=== PATIENT | male | born 1960 | race Caucasian/White ===

== ENCOUNTER 2017-02-16 08:07 | Inpatient (IN) | payer OTHER ==
[~2017-02-16] VITALS: Ht 172.7 cm; Wt 80.1 kg
--- NOTE | ~2017-02-16 | PR ---
[place], [place] PROGRESS NOTE NAME: TIMOTHY WHITLEY UNIT #: [id number] ROOM: 311 DOCTOR: ANDREZ VILLASENOR MD BIRTHDATE: [birth year] DOS: 02/21/2017 CHIEF COMPLAINT: "I slept a little better and I don't feel as hung over this morning." SUMMARY OF THE VISIT: The patient was interviewed. This time, he was already sitting eating breakfast. He stopped and engaged readily in conversation after shaking my hand. He reports that he slept at least another solid hour or two without interruption and was very happy about this and stated that when he woke up this morning, he did not feel that hang over effect that he felt yesterday. He denies any other side effects from the medications at this point in time and is willing to allow me to adjust further. His mood is trending towards euthymia. MENTAL STATUS: He is alert and oriented to person, place, and time. Mood does seem to be strongly trending towards euthymia and affect is much more appropriate. There are no symptoms of diana or hypomania. There are no overt auditory or visual hallucinations and memory is intact. PLAN: I will maximize out the dose of the Vraylar from 4.5 mg at bedtime to 6 mg at bedtime. Monitor and support, engage in individual and stern milieu activity with the plan to return home when psychiatrically stable. ANDREZ VILLASENOR MD CM:PNTRANS [id number] ANDREZ VILLASENOR MD 02/21/17 1421 interface
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
--- NOTE | ~2017-02-16 | PR ---
[place], [place] PROGRESS NOTE NAME: TIMOTHY WHITLEY UNIT #: [id number] ROOM: 311 DOCTOR: HELDER YEE BLANE BIRTHDATE: [birth year] DOS: 02/18/2017 CHIEF COMPLAINT: "Good morning." SUMMARY OF VISIT: The patient was interviewed in his room where he was reclining in bed after breakfast. He sat up and engaged readily in conversation. Nurses note that he did complain last night that there are fumes back in his apartment. I do see that he had mentioned this to Dr. Hoover. Unsure if this is a delusion or if there really may be some type of fumes, whether gas or maintenance type things going on that causes odor. Nursing notes that he tends to isolate, stay in his room, will come out for meals and occasionally for some of the group activities. I talked to him about this. He does state that he is kind of a person that stays to himself that this is his norm, it is not about that he is being lonely or isolating, he just feels better on his own. He did state that he does walk the halls and that he will try to do some of the group things he goes, but after a while, he gets a little overwhelming and he just goes back to his room. No behaviors or complaints per nursing. MENTAL STATUS: He is alert and oriented to person and place, approximate to time. There are some short-term memory gaps. Mood is euthymic, pleasant, I was able to get him to laugh. I did not get any obvious paranoia or delusions from him, but within the last 24 hours, he still does talk about the fumes in his apartment, so this is a possible delusion. May be we can reach out to the apartment he lives and find out if there is any kind of maintenance or something going on there that would cause the fumes. PLAN: Dr. Hoover increased his Vraylar last night, he seems to tolerate it well. He said his sleep was a little bit better last night and that is his main complaint. We also started him on Remeron and he is tolerating this. I will see how he does over the next 24 hours, I can always bump up the Vraylar. The target of the Vraylar is 6 mg, currently on 3 mg. Let me see how he does over the next 24 hours, most likely we will bump that up to 4.5 mg tomorrow if some of his delusions are not broken. We will go from there and plan to discharge when stable. [place], [place] PROGRESS NOTE NAME: TIMOTHY WHITLEY UNIT #: [id number] ROOM: [facility] DOCTOR: HELDER YEE BIRTHDATE: [birth year] BLANE YEE CNP CM:PNTRANS 29 HELDER YEE 02/18/17 1530 interface
--- NOTE | ~2017-02-16 | PR ---
[place], [place] PROGRESS NOTE NAME: TIMOTHY WHITLEY UNIT #: [id number] ROOM: 311 DOCTOR: ANDREZ VILLASENOR MD BIRTHDATE: [birth year] DOS: 02/20/2017 CHIEF COMPLAINT: "I had still not sleeping well, I was up at 11:30 and I was up again at 2:00." SUMMARY OF THE VISIT: The patient was in his room resting, but awoke easily and engaged readily in conversation. He reports that in some ways, he is feeling slightly better with the medicine, but still has a significant sleep problem. He has both difficulty falling asleep and maintaining sleep and tossed and turned throughout the evening and woke up now this morning feeling somewhat tired. He is unclear whether this tired totally because of lack of sleep or the medicines themselves, but is willing to allow me to adjust the medicines accordingly. He denies any other significant side effects. MENTAL STATUS: He is alert and oriented. Mood does still seem to be depressed with anxious overtones. There is still some mood lability noted, but there are no overt auditory or visual hallucinations. No delusions, no paranoia. Memory is intact. PLAN: I will go ahead and increase the Remeron from 15-22.5 mg at bedtime while simultaneously increasing the Vraylar from 3 mg at bedtime to 4.5 mg at bedtime. Routine screening examinations revealed him to have a low normal vitamin B12 level of 299. I will go ahead and give him a B12 injection of 1000 mcg IM today and then have him follow up with his primary care physician post-discharge. ANDREZ VILLASENOR MD CM:PNTRANS [id number] ANDREZ VILLASENOR MD 02/21/17 0013 interface
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
--- NOTE | ~2017-02-16 | PR ---
[place], [place] PROGRESS NOTE NAME: TIMOTHY WHITLEY UNIT #: [id number] ROOM: 311 DOCTOR: HELDER YEE BIRTHDATE: [birth year] DOS: 02/19/2017 CHIEF COMPLAINT: "Good morning." SUMMARY OF VISIT: The patient was interviewed in his room where he sat up and engaged in conversation with me. He states that overall his mood is fine is just that he is not sleeping, in particular he is struggling to go to sleep. He feels like he is fighting it and it is driving him crazy and the more he thinks about it the less sleep he gets. MENTAL STATUS: He is alert and oriented to person, place, approximate time. Mood trending towards euthymic other than the agitation about not sleeping. No overt signs of auditory or visual hallucinations. No discussion of these delusions about fumes. PLAN: Mood fletcher and delusions and paranoia fletcher, he seems fairly stable, I believe the Remeron is actually helping him , but just not get to sleep, so I am going to add some Vistaril 50 mg at bedtime to be given to him at the same time to see if this will help get him to sleep. This seems to be his main focus and where he feels that if he could just get a good night sleep. He would feel overall much better, but he was pleasant, engaging in conversation again and I was going to have the Vistaril to see how he does tonight and we can go from there. BLANE YEE CNP CM:PNTRANS [id number] HELDER YEE 02/19/17 1604 interface
[~2017-02-16 08:07] MED LIST: AMBIEN10 MG PO; EFFEXOR75 MG PO; FLOMAX0.4 MG PO; K-DUR20 MEQ PO; MIRALAX POWDER17 G1 PO; PRILOSEC20 MG PO; ZYPREXA ZYDIS20 MG PO; ZYPREXA20 MG PO
[2017-02-16 09:41] VITALS: BP 118/69
[2017-02-16] MEDS ORDERED: TRAZODONE150 MG PO (10:50)
[2017-02-16] MEDS ORDERED: OLANZAPINE20 M2 PO (10:51)
[2017-02-16] MEDS ORDERED: EFFEXOR-XR150 MG PO (10:51)
[2017-02-16 12:00] VITALS: BP 118/69
[2017-02-16 17:49] LABS: BILIRUBIN NEGATIVE (NEGATIVE); BLOOD NEGATIVE (NEGATIVE); CLARITY SL CLOUDY (CLEAR); COLOR YELLOW (YELLOW); GLUCOSE NEGATIVE (NEGATIVE); KETONE NEGATIVE (NEGATIVE); LEUKO ESTERASE NEGATIVE (NEGATIVE); NITRITE NEGATIVE (NEGATIVE); PH 6.5 (5.0-9.0); PROTEIN NEGATIVE (NEGATIVE)
[2017-02-16 17:56] LABS: BACTERIA 1+; EPITHELIAL CELLS 0-2; RBC 0-2 rbc/hpf (0-2); URINE REFLEX COMMENT NO (NO); WBC 0-2 wbc/hpf (0-5)
[2017-02-16 20:06] VITALS: BP 106/62
[2017-02-17 06:30] LABS: BASO # 0.1 10*3/uL (0.0-0.1); BASO % 0.5 % (0.0-1.0); EOS # 0.2 10*3/uL (0.0-0.4); EOS % 1.6 % (1.0-4.0); HEMATOCRIT 43.5 % (42.0-52.0); HEMOGLOBIN 15.3 g/dl (14.0-18.0); IG # 0.1 10*3/uL (0.0-0.1); LYMPH # 3.5 10*3/uL (1.3-4.4); LYMPH % 32.3 % (27.0-41.0); MEAN CELL VOLUME 91.2 fl (80.0-94.0); MEAN CORPUSCULAR HGB 32.1 pg (27.0-31.0); MEAN CORPUSCULAR HGB CONC 35.2 g/dl (33.0-37.0); MEAN PLATELET VOLUME 10.1 fl (9.6-12.3); MONO # 1.2 10*3/uL (0.1-1.0); MONO % 10.7 % (3.0-9.0); NEUT # 5.9 10*3/uL (2.3-7.9); NEUT % 54.2 % (47.0-73.0); PLATELET COUNT AUTOMATED 216 10*3/uL (130-400); RED BLOOD COUNT 4.77 10*6/uL (4.50-5.90); RED CELL DISTRI WIDTH 12.7 % (0-14.5)
[2017-02-17 07:04] LABS: ALBUMIN 3.4 gm/dl (3.1-4.5); ALKALINE PHOSPHATASE 82 U/L (45-117); BILIRUBIN, TOTAL 0.5 mg/dl (0.2-1.0); BUN 12 mg/dl (7-24); CARBON DIOXIDE 25 mmol/L (21-32); CHLORIDE 99 mmol/L (98-107); EST GLOM FILT AFRICAN AMERICAN > 60 ml/min; GLUCOSE 88 mg/dL (65-99); POTASSIUM 3.5 mmol/L (3.5-5.1); SGOT/AST 27 IU/L (3-35); SGPT/ALT 41 U/L (12-78); SODIUM 132 mmol/L (136-145); TOTAL PROTEIN 6.8 gm/dL (6.4-8.2)
[2017-02-17 07:10] LABS: HEMOGLOBIN A1c 6.1 % (4.8-5.6); THYROID STIM HORMONE (HS) 0.895 uIU/ml (0.358-4.75)
[2017-02-17 08:00] VITALS: BP 110/58
[2017-02-17 09:28] LABS: VITAMIN D, 25-HYDROXY 34.3 ng/mL (30-100)
[2017-02-17] MEDS ORDERED: LATANOPROST2.5 ML OU (13:21)
[2017-02-17] MEDS ORDERED: LUBRICANT EYE D15 ML OU (13:22)
[2017-02-17] MEDS ORDERED: VITAMIN D-32000 UNIT PO (13:30)
[2017-02-17] MEDS ORDERED: PRESERVISION A1 EAC1 PO (13:38)
[2017-02-17 19:49] VITALS: BP 97/43
[2017-02-18 07:57] VITALS: BP 129/78
[2017-02-18 19:44] VITALS: BP 131/70
[2017-02-19 07:43] VITALS: BP 118/66
[2017-02-19 19:49] VITALS: BP 122/54
[2017-02-20 07:16] VITALS: BP 119/65
[2017-02-20 19:44] VITALS: BP 126/67
[2017-02-21 07:01] VITALS: BP 121/56
[2017-02-21 20:00] VITALS: BP 117/60
[2017-02-22 07:46] VITALS: BP 106/62
[2017-02-22] MEDS ORDERED: HYDROXYZINE PAM25 M1 PO (08:08)
[2017-02-22] MEDS ORDERED: MIRTAZAPINE45 MG PO (08:08)
[2017-02-22] MEDS ORDERED: VRAYLAR3 MG PO (08:08)
[2017-02-22] MEDS ORDERED: KROGER NIC21 MG/24 H T (09:55)
== END 2017-02-22 11:50 | disposition home or self-care (01) | DRG 885 ==
LOC: 3N 08:07
PROVIDERS: Psychiatry & Neurology Psychiatry
DX: F25.9 Schizoaffective disorder, unspecified (principal); F33.3 Major depressive disorder, recurrent, severe with psychotic symptoms; E87.1 Hypo-osmolality and hyponatremia; F41.9 Anxiety disorder, unspecified; Z72.0 Tobacco use; Z84.89 Family history of other specified conditions; Z82.49 Family history of ischemic heart disease and other diseases of the circulatory system; Z79.899 Other long term (current) drug therapy; Z88.8 Allergy status to other drugs, medicaments and biological substances

== ENCOUNTER 2017-06-19 15:24 | Inpatient (IN) | payer OTHER ==
[~2017-06-19] VITALS: Ht 175.2 cm; Wt 77.6 kg
--- NOTE | ~2017-06-19 | PR ---
[place], [place] PROGRESS NOTE [id number] UN[facility] #: [id number] ROOM: 315 DOCTOR: Madhu BRIZUELA,ROSEANNA BIRTHDATE: [birth year] DOS: 06/28/2017 PSYCHIATRIC PROGRESS NOTE SUBJECTIVE: The patient seen and spoke with the staff. Per staff, the patient is still isolated, taking his medication, doing better than before, but yesterday he started talking about fleeting suicidal ideation and paranoia. The patient was pleasant, cooperative. He said that he is feeling "better today." I talked about his fleeting suicidal thought, he said that still it is there, but not as strong. He said that he do not want to act on it. He feels that the medication is helping him. He reports good sleep and appetite. MENTAL STATUS EXAMINATION: The patient was pleasant, cooperative, described his mood as "okay." Affect was flat. Thought process goal directed. No flight of ideas, loosening of association. He denied auditory or visual hallucination. No delusion or paranoia noted. He had fleeting suicidal ideation, but no intent or plan. Denied homicidal ideation, intent or plan. ASSESSMENT: Schizoaffective disorder. PLAN: 1. Continue current medication and care. 2. Continue redirection. 3. Supportive care. ROSEANNA BRIZUELA MD CM:KATLYN 01 02 Madhu BRIZUELA 06/29/171902 interface
--- NOTE | ~2017-06-19 | PR ---
[place], [place] PROGRESS NOTE [id number] UN[facility] #: [id number] ROOM: 315 DOCTOR: Madhu BRIZUELA,ROSEANNA BIRTHDATE: [birth year] DOS: 06/29/2017 PSYCHIATRIC PROGRESS NOTE SUBJECTIVE: The patient seen and spoke with the staff. Per staff, the patient slept all night. Took his medication. No behavioral problems or issues, but still reported fleeting suicidal ideation, but no intent or plan. The patient was pleasant and cooperative. He was in his bed. He said that he will get up today and go for breakfast. He reports being "fatigued," but did not say why he is feeling like that. He said that he still had fleeting suicidal ideation, but he feels safe in the hospital and this ideation is not as strong as before. He feels the medication is helping him. He denied any side effect from the medication also. MENTAL STATUS EXAMINATION: The patient was pleasant, cooperative, described his mood as "okay." Affect was flat. Thought process goal directed. No flight of ideas or loosening of association. He denied auditory or visual hallucination. He was vague about his paranoia. He reports fleeting suicidal ideation. Denied homicidal ideation, intent or plan. Insight and judgment fair. ASSESSMENT: Schizoaffective disorder. PLAN: 1. Continue current medication and care. 2. Continue redirection. 3. Supportive care. ROSEANNA BRIZUELA MD CM:KALTYN [id number] Madhu BRIZUELA 06/29/17 2314 interface
--- NOTE | ~2017-06-19 | PR ---
[place], [place] PROGRESS NOTE NAME[id number] UN[facility] #: [id number] ROOM: 315 DOCTOR: Madhu BRIZUELA,ROSEANNA BIRTHDATE: [birth year] DOS: 07/02/2017 SUBJECTIVE: The patient seen and I spoke with the staff. Per staff, the patient is doing well. No behavioral problems or issues, coming out from her room regularly, and also attending groups. He looks brighter. The patient was pleasant, cooperative. He was in his room on his bed. He made good eye contact, looks brighter. He says that he is feeling better. Denied depressed mood or hopelessness. Denied any other neurologic signs or symptoms of depression. He denied any psychotic symptoms. Also, reports good sleep and appetite. MENTAL STATUS EXAMINATION: The patient was pleasant, cooperative, described his mood as "good." Affect, mood congruent. Thought process goal directed. No flight of ideas or loosening of association. He denied auditory or visual hallucination. No delusions or paranoia noted. He denied any suicidal ideation, intent or plan. He also denied any homicidal ideation, intent or plan. Insight and judgment fair. ASSESSMENT: Schizoaffective disorder. PLAN: 1. Continue current medication and care. 2. Encourage activities and groups. 3. Discharge planning. ROSEANNA BRIZUELA MD CM:PNTRANS [id number] Madhu BRIZUELA 07/02/17 1041 interface
--- NOTE | ~2017-06-19 | PR ---
[place], [place] PROGRESS NOTE [id number] UN[facility] #: [id number] ROOM: 315 DOCTOR: Madhu BRIZUELA,ROSEANNA BIRTHDATE: [birth year] DOS: 06/21/2017 The patient seen and spoke with the staff. Per staff, the patient is still very withdrawn, guarded, isolative, taking his medication, no behavioral problems or issues. The patient was pleasant, cooperative. He was in his room as mentioned by the nursing staff. He is isolated. He stays in his room, i.e., when I asked him that if there are any problems or issues, he said "no." He said that he is taking his medication regularly and did not have any side effect. MENTAL STATUS EXAMINATION: The patient was pleasant, cooperative, but guarded, not forthcoming. Described his mood as "okay." Affect guarded. Thought process goal directed. No flight of ideas, loosening of association. Reports auditory hallucinations, not command type. Denied visual hallucination. He is still paranoid. Denied any suicidal ideation, intent or plan. He also denied any homicidal ideation, intent or plan. Insight and judgment impaired. ASSESSMENT: Schizoaffective disorder, still psychotic and delusional. PLAN: 1. Continue current medication and care. 2. Continue redirection. 3. Supportive care. ROSEANNA BRIZUELA MD CM:KATLYN [phone] Madhu BRIZUELA 06/22/17 0238 interface
--- NOTE | ~2017-06-19 | PR ---
[place], [place] PROGRESS NOTE NAME: TIMOTHY WHITLEY UNIT #: [id number] ROOM: 315 DOCTOR: Madhu BRIZUELA,ROSEANNA BIRTHDATE: [birth year] DOS: 06/30/2017 The patient seen and spoke with the staff. Per staff, patient is doing a little bit better than before, but still stays in his room, taking his medication regularly and less suicidal than before. The patient was in a room by himself, not in his room but in a room with a cassette player on. He said that he is feeling a little bit better and said that he is not as paranoid as before, but some paranoia is there. He is not hearing voices and suicidal thought is also less. He said that he really does not want to hurt himself. MENTAL STATUS EXAMINATION: The patient was pleasant and cooperative. Described his mood as "okay." Affect, mood congruent. Thought process, goal-directed, no flight of ideas, loosening of association. He denied auditory hallucination. He reports some paranoia. He still had fleeting suicidal ideation, but no intent or plan, said that he will ask for help. Denied homicidal ideation, intent, or plan. Insight and judgment fair. ASSESSMENT: Schizoaffective disorder. PLAN: 1. Continue current medication and care. 2. Continue redirection 3. Encourage activity and groups. ROSEANNA BRIZUELA MD CM:PNJUDSON [id number] Madhu BRIZUELA 07/01/17 1434 interface
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
--- NOTE | ~2017-06-19 | PR ---
[place], [place] PROGRESS NOTE NAME[facility]: [id number] UNIT #: [id number] ROOM: 315 DOCTOR: Madhu BRIZUELA,ROSEANNA BIRTHDATE: [birth year] DOS: 06/22/2017 SUBJECTIVE: The patient seen and spoke with the staff. Per staff, the patient stayed to himself, guarded and paranoid but medication compliant. No behavioral problems or issues. The patient was in his room. He states that he is doing "all right." When I asked him that why is he still in the room, he said that he will be coming out from his room shortly and go for the breakfast. He reports poor sleep at night. He said that he took trazodone in the past and that helped him. MENTAL STATUS EXAMINATION: The patient was pleasant and cooperative. Described his mood as "okay." Affect was guarded, flat. Thought process goal directed. No flight of ideas, loosening of associations. He denied auditory or visual hallucination. He is still paranoid and delusional. He denied suicidal ideation, intent or plan. He also denied homicidal ideation, intent or plan. ASSESSMENT: Schizoaffective disorder, still delusional and paranoid. PLAN: 1. Continue current medication and care. 2. Continue redirection. 3. Supportive care. ROSEANNA BRIZUELA MD CM:KATLYN 01 Madhu BRIZUELA 06/23/1754 interface
--- NOTE | ~2017-06-19 | PR ---
[place], [place] PROGRESS NOTE [id number] UNIT #: [id number] ROOM: 315 DOCTOR: Madhu BRIZUELA,ROSEANNA BIRTHDATE: [birth year] DOS: 06/26/2017 SUBJECTIVE: The patient seen and spoke with the staff. Per staff, the patient still stays in his room, a little bit more interactive than before, but still some paranoia there. He will be placed on a therapeutic lockout. The patient was pleasant and cooperative. As usual, he was in his room in the bed. He said that he came out from his room this morning. He claims that he still feels paranoid and that is why he does not want to interact with people as much as he wants. He says the medication seems helping him. He denied any side effect from the medication. He reports good sleep and appetite. MENTAL STATUS EXAMINATION: The patient was pleasant, cooperative. Described his mood as "okay." Affect guarded. Thought process goal directed. No flight of ideas, loosening of association. He denied auditory or visual hallucination. He is still delusional, paranoid. Denied suicidal ideation, intent or plan. He also denied homicidal ideation, intent or plan. Insight and judgment fair. ASSESSMENT: Schizoaffective disorder, still paranoid. PLAN: 1. Continue current medication and care. 2. Continue redirection. 3. Supportive care. ROSEANNA BRIZUELA MD CM:KATLYN [id number] Madhu BRIZUELA 06/27/17 1307 interface
--- NOTE | ~2017-06-19 | PR ---
[place], [place] PROGRESS NOTE NAME: TIMOTHY WHITLEY UNIT #: [id number] ROOM: 315 DOCTOR: Madhu BRIZUELA,ROSEANNA BIRTHDATE: [birth year] DOS: 07/01/2017 SUBJECTIVE: The patient is seen and spoke with the staff. Per staff, patient is doing well. No behavior problems or issues. Medication compliant and coming out from his room more than before. PHYSICAL EXAMINATION: The patient was pleasant, cooperative. He was on his bed. He made good eye contact. He looks brighter and happy. He said that he is feeling good. He denied being depressed or sad. He wants to go back to his apartment and start working on his GED that he was doing it before. He feels that the medication is helping him. MENTAL STATUS EXAMINATION: The patient was pleasant and cooperative, described her mood is "better." Affect, mood congruent. Thought process goal directed. No flight of ideas or loosening of association. He denied auditory or visual hallucination. No delusion or paranoia noted. He denied any suicidal ideation, intent or plan. He also denied any homicidal ideation, intent or plan. Insight and judgment fair. ASSESSMENT: Schizoaffective disorder. PLAN: 1. Continue current medication and care. 2. Continue redirection. 3. Discharge planning. ROSEANNA BRIZUELA MD CM:KATLYN 08 [phone] Madhu BRIZUELA 07/01/17 182 interface
--- NOTE | ~2017-06-19 | PR ---
[place], [place] PROGRESS NOTE NAME[facility] [id number] UNIT #: [id number] ROOM: 315 DOCTOR: Madhu BRIZUELA,ROSEANNA BIRTHDATE: [birth year] DOS: 06/24/2017 SUBJECTIVE: The patient seen and spoke with the staff. Per staff, the patient is doing well, but isolated, stayed to himself, but he comes out during the daytime and around noon, but then after staying few hours, he goes back to his room and does not come out. The patient was pleasant, cooperative. He looks much brighter. He said that he still feels paranoid, but it is much less than before. He reports feeling better. Reports good sleep and appetite. Denied any other problems or concerns. MENTAL STATUS EXAMINATION: The patient was pleasant, cooperative. Described his mood as "okay." Affect was guarded flat. Thought process goal directed. No flight of ideas or loosening of association. He denied auditory or visual hallucination. He is still delusional and paranoid. Denied suicidal ideation, intent or plan. He also denied any homicidal ideation, intent or plan. ASSESSMENT: Schizoaffective disorder. PLAN: 1. Continue current medication. 2. Continue redirection 3. Supportive care. ROSEANNA BRIZUELA MD CM:KATLYN [id number] Madhu BRIZUELA 06/24/17 1009 interface
--- NOTE | ~2017-06-19 | PR ---
[place], [place] PROGRESS NOTE [id number] UNIT #: [id number] ROOM: 315 DOCTOR: Madhu BRIZUELA,ROSEANNA BIRTHDATE: [birth year] DOS: 06/25/2017 SUBJECTIVE: The patient seen and spoke with the staff. Per staff, the patient stayed in bed all day, refused his breakfast this morning, slept all day. Med compliant. No behavioral problems or issues. Reportedly, he is still guarded and paranoid. The patient was pleasant, cooperative. He was in his home as usual. He said that he is feeling better, but still paranoid. Med compliant. Denied any side effect from the medication. MENTAL STATUS EXAMINATION: The patient was pleasant, cooperative, guarded. Described his mood as "okay and good." Affect flat. Thought process goal directed. No flight of ideas, loosening of association. He denied auditory or visual hallucination. He is delusional, paranoid. He denied suicidal ideation, intent or plan. He also denied homicidal ideation, intent or plan. ASSESSMENT: Schizoaffective disorder. PLAN: 1. Continue current medication and care. 2. Continue redirection. 3. Encourage activity and groups. ROSEANNA BRIZUELA MD CM:KATLYN [phone] Madhu BRIZUELA 06/26/17 0124 interface
--- NOTE | ~2017-06-19 | PR ---
[place], [place] PROGRESS NOTE [facility]: [id number] UNIT #: [id number] ROOM: 315 DOCTOR: Madhu BRIZUELA,ROSEANNA BIRTHDATE: [birth year] DOS: 06/23/2017 SUBJECTIVE: The patient seen and I spoke with the staff. Per staff, the patient stayed in the room all the day, taking his medication, isolated, attended some groups. No visual problems or issues. The patient was pleasant and cooperative. As usual, he was in his room, but today, he looked at me. He looks much brighter. He said that he still has some part on the paranoia and that is why he does not want to go out into the unit but said that he is taking his medication regularly and did not have any side effect. He reports good sleep and appetite. Denied being depressed or sad. MENTAL STATUS EXAMINATION: The patient was pleasant, cooperative. Described his mood as "okay." Affect was flat, guarded. Thought process goal directed. No flight of ideas or loosening of association. He denied auditory or visual hallucination. He is delusional or paranoid. He denied suicidal ideation, intent or plan. He also denied any homicidal ideation, intent or plan. Insight and judgment poor to fair. ASSESSMENT: Schizoaffective disorder, still paranoid. PLAN: 1. Continue current medication. 2. Continue redirection. 3. Encourage activity and groups. ROSEANNA BRIZUELA MD CM:KATLYN [phone] Madhu BRIZUELA 06/24/17 0154 interface
--- NOTE | ~2017-06-19 | DS ---
[place], [place] DISCHARGE SUMMARY [id number] UN[facility] #: [id number] ROOM: 315 DOCTOR: CLAUDINE ADAMS BIRTHDATE: [birth year] DOS: 07/03/2017 CHIEF COMPLAINT: "I'm ready to go home." DIAGNOSIS: Schizoaffective disorder. HISTORY OF PRESENT ILLNESS: He is a 57-year-old who was living in the community, brought into the Emergency Room by EMS because he was found wandering down the street, confused and grossly psychotic. He was brought to the Emergency Room and then admitted to the Behavioral Health Unit for medication stabilization. HISTORY OF PRESENT ILLNESS: When he first came in, he was pleasant and cooperative but very guarded, was not giving as much information. He said that he had been waiting for someone to come and pick him up to take him to the Emergency Room. He reported that he was hearing voices that the voices were telling him bad things about himself, but they were not telling him to do anything harmful to anyone else. Stated that he had stopped taking his medication and had been up for several nights. SUMMARY OF HOSPITAL COURSE: When he came in, he was on Remeron and Invega. Those were discontinued and Effexor XR and Risperdal were started as well as Cogentin b.i.d. for some tremors movements that he had. When he first came to the unit, he was withdrawn and isolative, would not come out of his room, stated that he was having auditory hallucinations. He was very delusional and paranoid. On 06/28, he expressed some fleeting suicidal ideation and paranoia, but by 06/30, he was no longer hearing voices or having suicidal ideation. MENTAL STATUS AT DISCHARGE: He is alert, oriented to himself and place, pretty approximate to time. His mood and affect are appropriate. He is interactive. He was sitting in the dining room playing game with a whole group of other patients and he was actually winning. He knew the answers to most of the questions. He denies any suicidal ideation and he also denies any auditory hallucinations at this time. DIAGNOSIS AT DISCHARGE: Schizoaffective disorder. DISPOSITION: He will be discharged home in psychiatrically stable condition. His prescriptions have been e-scribed to his pharmacy. Just a note, his allergies do list Risperdal as an allergy. He has been on both Invega and Risperdal and has tolerated that active ingredient without any adverse reaction, so we will be contacting the pharmacy to take that off of his allergy list. [place], [place] DISCHARGE SUMMARY NAME: TIMOTHY WHITLEY UNIT #: [id number] ROOM: [facility] DOCTOR: CLAUDINE ADAMS BIRTHDATE: [birth year] Claudine Adams NP CM:SOHAM [phone] CLAUDINE ADAMS 07/03/17 1527 interface
--- NOTE | ~2017-06-19 | PR ---
[place], [place] PROGRESS NOTE [id number] #: [id number] ROOM: 315 DOCTOR: Madhu BRIZUELA,ROSEANNA BIRTHDATE: [birth year] DOS: 06/27/2017 PSYCHIATRIC PROGRESS NOTE SUBJECTIVE: The patient seen and spoke with the staff. Per staff, the patient is doing better, but still guarded, stays in his room, does not come out as often. The patient was in his room. He said that he will not eat the breakfast this morning, but will eat the lunch. He said that he is feeling better. The medication is helping him, still had some paranoia, but denied being depressed or sad. Medication compliant. No side effects. MENTAL STATUS EXAMINATION: Pleasant, cooperative. Described his mood as "okay and good. Affect guarded. Thought process goal directed. No flight of ideas or loosening of association. Denied auditory or visual hallucinations. He still had some paranoia. Denied suicidal ideation, intent or plan. He also denies homicidal ideation, intent or plan. Insight and judgment fair. ASSESSMENT: Schizoaffective disorder. PLAN: 1. Continue current medication and care. 2. Continue redirection. 3. Supportive care. ROSEANNA BRIZUELA MD CM:KATLYN [id number] Madhu BRIZUELA 06/27/17 1335 interface
[~2017-06-19 15:24] MED LIST changes: +EFFEXOR-XR150 MG PO; +HYDROXYZINE PAM25 M1 PO; +KROGER NIC21 MG/24 H T; +LATANOPROST2.5 ML OU; +LUBRICANT EYE D15 ML OU; +MIRTAZAPINE45 MG PO; +OLANZAPINE20 M2 PO; +PRESERVISION A1 EAC1 PO; +TRAZODONE150 MG PO; +VITAMIN D-32000 UNIT PO; +VRAYLAR3 MG PO
[2017-06-19 18:03] VITALS: BP 149/72
--- NOTE | 2017-06-19 19:23 | NUR ---
DR PECK ON UNIT TO SEE PT AT THIS TIME.
--- NOTE | 2017-06-19 19:38 | NUR ---
TIMOTHY WHITLEY a 57 year old M admitted via stretcher from the ADMITTING as a emergency 72 hr. hold admission. Arrived on unit at 1645. ALLERGIES: PER REPORT NO KNOWN ALLERGIES. Vital signs are: 98.1-58-18 149/72. The client signed the following forms with stated understanding: Authorization For The Release of Medical Information, Clothing List, Consent and Release Forms/Receipt of Rights, Acknowledgement of Advance Directive Information, Behavioral Health Consent Form, and Informed Consent of Medications. Admitted under the services of Dr. HAMILTON MULLINSANDREZ. A search was conducted and hazardous articles were removed. Client was oriented to the unit. SANDEE GARDINER
--- NOTE | 2017-06-19 19:42 | NUR ---
Dr. Hoover was notified of admission with orders received. Dr. Bhatia was notified of consultation for medical management.
[2017-06-19 20:08] VITALS: BP 120/77
--- NOTE | 2017-06-19 22:54 | NUR ---
DR THOMAS MARTINEZ WAS UPDATED ON THE HEALTH HISTORY AND HOME MEDS BEING UPDATED. DR STATED OK SHE WILL BE COMING TO THE FLOOR AND WILL CONTINUE HOME MEDS.
--- NOTE | 2017-06-19 23:15 | NUR ---
PT COOPERATIVE WITH PART OF THE ASSESSMENT. PT WOULD TURN HIS BACK AWAY FROM THE NURSE AND COVER UP TO HIS NECK. PT WOULD ALSO STAY QUIET AND NOT ANSWER OTHER QUESTIONS. MEDICATION HISTORY FOUND IN COMPUTER FROM A PREVIOUS ADMISSION AND GONE OVER WITH PT. PT GUARDED WITH ANSWERS AND WOULD ANSWER MOST OF THE QUESTIONS WITH "I DONT KNOW". NO WOUNDS NOTED ON SKIN.
--- NOTE | 2017-06-20 01:34 | NUR ---
24 HR chart check completed.
--- NOTE | 2017-06-20 05:42 | NUR ---
PT SLEPT >8 HOURS THIS SHIFT. NO S/S OF DISTRESS NOTED. NO C/O PAIN. SEE [facility] FLOWSHEET FOR SPECIFIC MONITORING.
[2017-06-20 07:40] LABS: BASO # 0.1 10*3/uL (0.0-0.1); BASO % 0.6 % (0.0-1.0); EOS # 0.2 10*3/uL (0.0-0.4); EOS % 1.5 % (1.0-4.0); HEMATOCRIT 47.3 % (42.0-52.0); HEMOGLOBIN 16.3 g/dl (14.0-18.0); LYMPH # 2.8 10*3/uL (1.3-4.4); LYMPH % 27.4 % (27.0-41.0); MEAN CELL VOLUME 92.6 fl (80.0-94.0); MEAN CORPUSCULAR HGB 31.9 pg (27.0-31.0); MEAN CORPUSCULAR HGB CONC 34.5 g/dl (33.0-37.0); MEAN PLATELET VOLUME 9.4 fl (9.6-12.3); MONO # 1.1 10*3/uL (0.1-1.0); MONO % 10.4 % (3.0-9.0); NEUT # 6.1 10*3/uL (2.3-7.9); NEUT % 59.2 % (47.0-73.0); PLATELET COUNT AUTOMATED 219 10*3/uL (130-400); RED BLOOD COUNT 5.11 10*6/uL (4.50-5.90); RED CELL DISTRI WIDTH 12.9 % (0-14.5); WHITE BLOOD COUNT 10.3 10*3/uL (4.8-10.8)
[2017-06-20 08:06] VITALS: BP 126/82
[2017-06-20 08:53] LABS: VITAMIN D, 25-HYDROXY 34.3 ng/mL (30-100)
[2017-06-20 09:18] LABS: ALBUMIN 3.3 gm/dl (3.1-4.5); ALKALINE PHOSPHATASE 88 U/L (45-117); BUN 14 mg/dl (7-24); CHLORIDE 105 mmol/L (98-107); CREATININE 0.99 mg/dL (0.70-1.30); POTASSIUM 3.8 mmol/L (3.5-5.1); SGOT/AST 30 IU/L (3-35); SGPT/ALT 40 U/L (12-78); SODIUM 137 mmol/L (136-145); TOTAL PROTEIN 7.2 gm/dL (6.4-8.2)
--- NOTE | 2017-06-20 09:18 | NUR ---
Occupational Therapy referral received and screen completed this date on 3N. Patient in bed and wakes easily. Staff reports that he is independent in self care and functional mobility on the unit. He tends to walk fast per staff. Patient agrees with above and does not need OT at this time. Recommend return to prior level of functioning with no further OT at this time. Thank you for this referral. Elisabeth Sampson OTR/L
[2017-06-20 09:25] LABS: THYROID STIM HORMONE (HS) 0.931 uIU/ml (0.358-4.75)
--- NOTE | 2017-06-20 11:02 | NUR ---
OT evaluation attempted once again this date. Patient was able to open eyes briefly x1. She was resistive to standing or moving. OTR will attempt at a later date. Elisabeth Sampson OTR/brandyn
--- NOTE | 2017-06-20 11:15 | NUR ---
PT participated during recreation therapy groups this morning. PT cooperative during group. PT quiet and not interacting unless spoken too. PT identifying daily goal for the day. PT following along with exercise group and learning/identifying the benefits to utilizing recreation activities to improve overall mental health and functioning.
--- NOTE | 2017-06-20 13:12 | NUR ---
PHYSICAL THERAPY Physical Therapy Evaluation completed this date. See eval document for details. Based on the independence pnt demonstrated with all functional mobility testing, no on-going PT services are recommended at [place] time[place] [address] based on chart review and PT eval. Suzan Reyes, PT
--- NOTE | 2017-06-20 14:19 | NUR ---
TREATMENT TEAM WAS HELD TO DISCUSS CARE WITH THE FOLLOWING PRESENT: DR BRIZUELA. AT, & SW
--- NOTE | 2017-06-20 14:37 | NUR ---
PATIENT REMAINS ALERT AND ORIENTED X2. MOOD IS CALM AND AFFECT IS FLAT. NO SI OR HI NOTED. NO DELUSIONS PRESENT BUT PATIENT DOES EXHIBIT AUDITORY HALLUCINATIONS PER SOCIAL WORK. THIS NURSE DID NOT OBSERVE. PATIENT IS MEDICATION COMPLIANT WITHOUT DIFFICULTY. APPETITE IS GOOD. PATIENT IS CONTINENT OF BOWEL AND BLADDER. NO PAIN REPORTED THIS SHIFT. PATIENT PARTICIPATED IN GROUP AND ACTIVITY THERAPY.
--- NOTE | 2017-06-20 15:32 | NUR ---
Patient refused to participate during recreation therapy group this afternoon, despite several attempts of encouragement.
--- NOTE | 2017-06-20 16:26 | NUR ---
Shirt Line Operator Note: Faxed referral packets for start up services with [facility], [facility] and [facility]. Confirmations received from all.
--- NOTE | 2017-06-20 17:07 | NUR ---
DR WILLIAM ON UNIT TO ASSESS PATIENT. NO PROBLEMS AND NO NEW ORDERS.
[2017-06-20 20:14] VITALS: BP 129/74
--- NOTE | 2017-06-20 20:40 | NUR ---
PATIENT MED COMPLAINT. PT VOICES NO COMPLAINTS OF PAIN OR DISCOMFORT. FLUIDS PROVIDED. PATIENT AMBULATING IN ROOM WITH STEADY GAIT
--- NOTE | 2017-06-21 05:06 | NUR ---
24 HR chart check completed.
--- NOTE | 2017-06-21 05:38 | NUR ---
PATIENT RESTING IN BED. PT SLEEPING AT LEAST 8 HOURS THIS SHIFT. VOICES NO COMPLAINTS OF PAIN OR DISCOMFORT AT THIS TIME
[2017-06-21 08:13] VITALS: BP 116/69
--- NOTE | 2017-06-21 10:50 | NUR ---
Treatment Team was held to discuss care withthe following present: Dr. Betancourt (phone), RN, AT, SW, & Director.
--- NOTE | 2017-06-21 11:28 | NUR ---
PT did attend RT group this morning. PT was quiet and withdrawn. PT participated during group only with prompting PT did not voice hallucinations during group
--- NOTE | 2017-06-21 11:34 | NUR ---
SW received call from [facility] that they were not able to take referral due to Psych Nurse being off.
--- NOTE | 2017-06-21 11:37 | NUR ---
JELLY faxed demographics to [facility] per the request of LIZZ Narvaez.
--- NOTE | 2017-06-21 12:32 | NUR ---
VM received from [facility] informing that they do not have a contract with Pt's insurance and can not accept referral.
--- NOTE | 2017-06-21 15:56 | NUR ---
Patient participated during recreation therapy groups this afternoon. Patient playing bingo with peers and participating in group discussion (reminiscing and riddles) when prompted. He was quiet and somewhat withdrawn. Voicing NO hallucinations during group interactions.
[2017-06-21 20:00] VITALS: BP 112/60
--- NOTE | 2017-06-21 20:20 | NUR ---
PATIENT RESTING IN BED ON LEFT SIDE. PATIENT MED COMPLAINT. PATIENT REMINDED THAT URINE SPECIMEN STILL NEEDED OBTAINED. PATIENT VERBALIZED THAT HE WAS UNABLE TO VOID AT THIS TIME BUT WILL LET STAFF KNOW WHEN HE HAS TO GO TO THE BATHROOM
--- NOTE | 2017-06-21 20:21 | NUR ---
NUTRITION TEACHER: PATIENT REFERRAL INFORMATION PACKET WAS SIGNED BY DR. BRIZUELA AND SENT TO THE [facility]. REFERRAL BACK WITH FAX CONFIRMATION IS IN THE ADMISSION/DISCHARGE COMMUNICATION FOLDER.
--- NOTE | 2017-06-22 03:12 | NUR ---
24 HR chart check completed.
--- NOTE | 2017-06-22 06:35 | NUR ---
PATIENT RESTING IN BED. SLEPT >8 HOURS THIS SHIFT. VOICES NO COMPLAINTS OF PAIN OR DISCOMFORT AT THIS TIME
--- NOTE | 2017-06-22 06:44 | NUR ---
THIS NURSE SPOKE TO PATIENT. PATIENT UNABLE TO PROVIDE URINE SPECIMEN AT THIS TIME
[2017-06-22 08:04] VITALS: BP 112/75
--- NOTE | 2017-06-22 11:02 | NUR ---
case management gave clinicals to Teetee from [facility], she has approved patient's stay lcd 07/24/17, with update on 07/24/17, reference number is [id number]
--- NOTE | 2017-06-22 11:36 | NUR ---
Patient refused to participate during recreation therapy groups this morning. he was withdrawn in his room not willing to join.
[2017-06-22 11:47] LABS: BILIRUBIN NEGATIVE (NEGATIVE); BLOOD TRACE-INTACT (NEGATIVE); CLARITY SL CLOUDY (CLEAR); COLOR YELLOW (YELLOW); GLUCOSE NEGATIVE (NEGATIVE); KETONE NEGATIVE (NEGATIVE); LEUKO ESTERASE 1+ (NEGATIVE); NITRITE POSITIVE (NEGATIVE); PH 5.5 (5.0-9.0); SPECIFIC GRAVITY 1.015 (1.005-1.030); UROBILINOGEN 0.2 E.U./dl (0.2-1.0)
[2017-06-22 12:06] LABS: BACTERIA 1+; RBC 0-2 rbc/hpf (0-2)
--- NOTE | 2017-06-22 12:24 | NUR ---
case management called [facility] spoke to Teetee, clinical review given, stay approved with lcd 06/23/17, next review 06/23/17. authorization number is [id number]
--- NOTE | 2017-06-22 13:52 | NUR ---
DR LONGORIA UPDATE ON [facility]A RESULTS.
--- NOTE | 2017-06-22 15:23 | NUR ---
SWS faxed Pas[facility] today.
--- NOTE | 2017-06-22 15:53 | NUR ---
PATIENT IS ALERT AND ORIENT TO PERSON AND PLACE; ABLE TO VOICE NEEDS. RESPIRATIONS ARE EASY, NON-LABORED ON ROOM AIR. MOOD IS STABLE, CALM DEMEANOR. THOUGTH PROCESS IS GOAL DIRECTED, DENIES ANY HALLUCINATIONS OR DELUSIONS. PATIENT REFUSED BREAKFAST THIS MORNING, ISOLATIVE AT TIMES. PARTICIPATES IN GROUP ACTIVITIES WITH ENCOURAGEMENT. FAIR INTAKES WITH ADEQUATE FLUIDS. SET UP FOR DRESSING, GROOMING AND BATHING NEEDED. CONTINENT OF BOWEL AND BLADDER. Q 15 MINUTE CHECKS MAINTIANED. PLAN IS TO CONITNUE ENCOURAGEMENT TO ATTEND GROUP ACTIVITIES, SOCIALIZE WITH OTHER PATIENTS AND STAFF, MONITOR FOR ANY HALLUCINATION AND DELSIONS.
--- NOTE | 2017-06-22 15:59 | NUR ---
Patient participated during recreation therapy group this afternoon. Patient quiet and withdrawn from others and not much interaction with staff.
--- NOTE | 2017-06-22 19:42 | NUR ---
TREATMENT TEAM WAS HELD TO DISCUSS CARE WITH THE FOLLOWING: DR. BRIZUELA (PHONE), RN, W & DIRECTOR.
[2017-06-22 20:11] VITALS: BP 139/69
--- NOTE | 2017-06-23 02:38 | NUR ---
24HR CHART CHECKS COMPELTE
--- NOTE | 2017-06-23 05:33 | NUR ---
PT SLEPT >10HRS WITH NO AWAKENINGS. PT ISOLATED TO ROOM FOR ENTIRE SHIFT. MEDICATION COMPLIANT. REFER TO FLOWSHEET FOR ADDITIONAL INFO.
[2017-06-23 07:53] VITALS: BP 131/69
--- NOTE | 2017-06-23 12:11 | NUR ---
case management gave updated clinicals to jose armando at [facility], gave Dr Betancourt phone number to her per her request for a peer to peer
--- NOTE | 2017-06-23 15:07 | NUR ---
case management received a return call from [facility], peer to peer was done and patient's stay has been approved until . with next review being 06/26/17
--- NOTE | 2017-06-23 15:54 | NUR ---
Patient again quiet and withdrawn behaviors. patient encouraged to join group and did so. He only spoke when spoken to but did complete craft activity on his own. [place] the benefits of leisure activities and listened to group discuss how to occupy their time.
--- NOTE | 2017-06-23 16:22 | NUR ---
Treatment Team was held to discuss care with the following: Dr. Betancourt (phone), Rn, AT, SW, and Director.
--- NOTE | 2017-06-23 18:19 | NUR ---
PATIENT REMAINS ALERT AND ORIENTED X2. MOOD IS STABLE AND AFFECT IS FLAT. NO SI OR HI NOTED. NO HALLUCINATIONS OR DELUSIONS NOTED, PATIENT CONTINUES TO ISOLATE TO ROOM WITH THE EXCEPTION OF MEALS AND THERAPY TIMES. PLAN IS TO CONTINUE TO INVOLVE IN ACTIVITIES AND DISCHARGE WHEN STABLE. APPETITE REMAINS GOOD. PATIENT IS CONTINENT OF BOWEL AND BLADDER. MEDICATION COMPLIANT WITHOUT DIFFICULTY. PATIENT PARTICIPATED IN GROUP AND ACTIVITY THERAPY. NO PAIN REPORTED THIS SHIFT.
[2017-06-23 20:00] VITALS: BP 124/68
--- NOTE | 2017-06-24 02:47 | NUR ---
24HR CHART CHECKS COMPLETE
--- NOTE | 2017-06-24 06:12 | NUR ---
PT SLEPT >10 HRS. ISOLATED TO ROOM FOR ENTIRE SHIFT. REFER TO FLOWSHEER FOR ADDITIONAL INFO
[2017-06-24 08:27] VITALS: BP 114/77
--- NOTE | 2017-06-24 14:41 | NUR ---
[facility] HERE TO ASSESS PT FOR PASRR.
--- NOTE | 2017-06-24 16:50 | NUR ---
dr modiu up to see patients and notifed of urine results
[2017-06-24 19:56] VITALS: BP 105/66
--- NOTE | 2017-06-24 21:24 | NUR ---
REMAINS ISOLATIVE TO ROOM. REFUSED SNACK AND SOCIALIZATION. MEDICATION COMPLIANT
--- NOTE | 2017-06-25 01:40 | NUR ---
P#1--SCHIOAFFECTIVE DISORDER I- MEDICATE PER DOCTORS ORDERS, TEACH NEW COPING SKILLS, ENCOURAGE SOCIALIZATION, ORIENT TO SELF,PLACE AND TIME P- ORIENTED TO SELF PLACE AND TIME, MORE SOCIALLY INTERACTIVE
--- NOTE | 2017-06-25 04:45 | NUR ---
24 HR chart check completed.
--- NOTE | 2017-06-25 06:33 | NUR ---
SLEPT UNINTERUPTED FOR APPROX 6 HOURS. MOVES SELF IN BED.
[2017-06-25 08:00] VITALS: BP 116/78
--- NOTE | 2017-06-25 11:45 | NUR ---
PATIENT IS ALERT AND ORIENTED TO PERSON AND PLACE, ABLE TO VOICE NEEDS. PATIENT IN DINNING ROOM, RESPIRATIONS ARE EASY, NON-LABORED ON ROOM AIR. PATIENT DENIES ANY DELUSIONS, STATES HE HEARS VOICES AND FEELS A LITTLE PARANOID AT TIMES. MOOD IS DEPRESSED AND IS ISOLATIVE AT TIME, MUCH ENCOURAGEMENT TO COME TO DINNING ROOM FOR MEALS AND WATCH MOVIES WITH ALL THE OTHER PATIENTS. COMPLIANT WITH MEDICATIONS. AMBULATORY WITH STEADY GAIT, CONTINENT OF BOWEL AND BLADDER, DENIES ANY PAIN OR DISFORT. PLAN IS TO CONTINUE TO ENCOURAGE MEAL INTAKES AND TO PARTICIPATE IN GROUP ACTIVITIES. Q 15 MINUTE SAFETY CHECKS MAINTIANED.
--- NOTE | 2017-06-25 16:00 | NUR ---
DR WILLIAM ON UNIT TO SEE PATIENT.
[2017-06-25 20:29] VITALS: BP 103/60
--- NOTE | 2017-06-25 20:58 | NUR ---
REFUSED SNACK AND TO GO INTO DININGROOM. SAT IN QUIET ROOM TILL MEDICATIONS PASSED. DISCUSSED PITFALLS OF ISOLATION. MOOD DEPRESSED AND HOPELESS. STATES HE WANTS TO GET BETTER AND GO HOME BUT DOESN'T SEE IT HAPPENING. NO EYE CONTACT DURING CONVERSATION. AGREED TO SIT UP IN THE DININGROOM TOMORROW BUT NOT TO PARTICIPATE. WILL MONITOR TINT OF JAUNDICE NOTED IN BILAT EYES.
--- NOTE | 2017-06-26 02:16 | NUR ---
P#1-- SCHIZOAFFECTIVE DISORDER I- MEDICATE PER DOCTORS ORDERS, IMPROVE COPING SKILLS, DECREASE ANXIETY AND FEAR OF BEING AROUND OTHERS P- IMPROVED SOCIALIZATION, PROPER USE OF COPING SKILLS
--- NOTE | 2017-06-26 04:25 | NUR ---
24 HR chart check completed.
--- NOTE | 2017-06-26 06:20 | NUR ---
SLEPT WELL PAST 2130PM. MOVES WELL IN BED WITHOUT ASSISTANCE
--- NOTE | 2017-06-26 08:48 | NUR ---
CARLITA CHURCHILL CNP ON UNIT TO SEE PATIENT.
[2017-06-26 10:43] VITALS: BP 118/81
--- NOTE | 2017-06-26 11:38 | NUR ---
TREATMENT TEAM WAS HELD TO DISCUSS CARE WITH THE FOLLOWING: DR. BRIZUELA (PHONE), RN, AT, SW.
--- NOTE | 2017-06-26 12:42 | NUR ---
case management gave updated review to Teetee, this case was sent to the medical tech, no determination as of yet
--- NOTE | 2017-06-26 12:54 | NUR ---
PT did attend RT group this morning. PT would speak when spoken to but did not join in on the discussion time. PT was withdrawn, sitting in a chair in the corner. Asked PT to join us at the table but PT refused, PT did move from the corner to another table.
--- NOTE | 2017-06-26 15:31 | NUR ---
PATIENT IS ALERT AND ORIENT TO PERSON, PLACE AND TIME, ABLE TO VOICE NEEDS. RESPIRATIONS ARE EASY, NON-LABORED ON ROOM AIR. MOOD IS STABLE AND DEPRESSED. THOUGHT PROCESS IS ORANIZED AND PREOCCUPIED WITH WANTING TO STAY IN BED AND SLEEP. MUCH ENCOURAGEMENT TO PARTICIPATE IN GROUP SESSIONS AND COME TO THE DINNING ROOM FOR MEALS. APPETITE IS FAIR WITH ADEQUATE FLUIDS. TODAY PATIENT WAS INTERACTIVE WITH STAFF AND ATTENDED GROUP. PATIENT IS INDEPENDANT WITH ACTIVITIES OF DAILY LIVING. AMBULATORY WITH STEADY GAIT, SET UP FOR SHOWER. PATIENT DENIES ANY PAIN OR DISCOMFORT, HALLUCINATIONS OR DELUSION, OR HI/SI. Q 15 MINUTE SAFETY CHECKS MAINTAINED. MEDICATION EDUCATION PROVIDED AND PATIENT IN COMPLAINT WITH MEDICATIONS. PLAN IS TO CONTINUE TO MONITOR MEDICATION COMPLIANCE, ENCOURAGE PATIENT TO COME OUT OF ROOM FOR GROUP SESSIONS AND MEALS.
--- NOTE | 2017-06-26 16:02 | NUR ---
PT did attend RT group. PT also participated. PT is quiet not speaking unless spoken to. PT did socialize with another PT occasionalywhile doing crafts
[2017-06-26 20:21] VITALS: BP 118/61
--- NOTE | 2017-06-27 04:10 | NUR ---
24 HOUR CHART CHECK COMPLETED.
[2017-06-27 06:09] LABS: BASO # 0.1 10*3/uL (0.0-0.1); BASO % 1.1 % (0.0-1.0); EOS # 0.2 10*3/uL (0.0-0.4); EOS % 2.5 % (1.0-4.0); HEMOGLOBIN 15.3 g/dl (14.0-18.0); LYMPH # 2.5 10*3/uL (1.3-4.4); LYMPH % 31.6 % (27.0-41.0); MEAN CELL VOLUME 93.9 fl (80.0-94.0); MEAN CORPUSCULAR HGB 31.9 pg (27.0-31.0); MONO % 12.1 % (3.0-9.0); NEUT # 4.2 10*3/uL (2.3-7.9); NEUT % 52.2 % (47.0-73.0); PLATELET COUNT AUTOMATED 207 10*3/uL (130-400); RED BLOOD COUNT 4.79 10*6/uL (4.50-5.90); RED CELL DISTRI WIDTH 12.5 % (0-14.5)
--- NOTE | 2017-06-27 06:09 | NUR ---
PATIENT OBSERVED ON Q 15 MIN CHECKS TO HAVE SLEPT APPROX 7 HOURS UNINTERRUPTED THIS SHIFT, NO PHYSICAL COMPLAINTS VOICED, MEDICATION COMPLIANT WITHOUT DIFFICULTY. NO SIGNS OR SYMPTOMS OF DISTRESS NOTED. REFER TO [facility] FLOWSHEET FOR SPECIFIC MONITORING.
[2017-06-27 06:36] LABS: ALBUMIN 3.4 gm/dl (3.1-4.5); BUN 11 mg/dl (7-24); CHLORIDE 105 mmol/L (98-107); POTASSIUM 4.2 mmol/L (3.5-5.1); SODIUM 138 mmol/L (136-145)
[2017-06-27 06:40] LABS: ALKALINE PHOSPHATASE 79 U/L (45-117); CREATININE 1.06 mg/dL (0.70-1.30); SGOT/AST 30 IU/L (3-35); SGPT/ALT 49 U/L (12-78); TOTAL PROTEIN 6.9 gm/dL (6.4-8.2)
[2017-06-27 08:08] VITALS: BP 117/71
--- NOTE | 2017-06-27 10:26 | NUR ---
CARLITA CHURCHILL CNP ON UNIT TO SEE PATIENT.
--- NOTE | 2017-06-27 12:05 | NUR ---
case management recieved a call from [facility], stay was approved with last covered day 06/27/17, next review 06/28/17
--- NOTE | 2017-06-27 13:47 | NUR ---
PT was in attendence during RT group. PT did participate a little but was mostly withdrawn and quiet. PT did speak when spoken to
--- NOTE | 2017-06-27 15:52 | NUR ---
PT did attend Rt group this afternoon. PT did participate and actively voiced his opinion throughout group without being prompted
--- NOTE | 2017-06-27 18:45 | NUR ---
DR. BRIZUELA ON UNIT AND MET WITH SW. STATED PT IS STILL DELUSIONAL AND NO9T READY FOR DISCHARGE.
--- NOTE | 2017-06-27 18:46 | NUR ---
SW RECEIVED PASRR RESULTS BACK AND PT WAS DENIED [facility] ADMISSION. COPY ON CHART.
[2017-06-27 19:52] VITALS: BP 112/61
--- NOTE | 2017-06-27 21:42 | NUR ---
PATIENT IN ROOM AND BED DURING HS MEDICATION PASS. DURING 1:1 PATIENT STATED THAT HE "FEELS FINE". DENIES FEELINGS OF DEPRESSION, SUIDICAL IDEATIONS, OR HALLUCINATIONS. NO PHYSICAL COMPLAINTS VOICED. MEDICATION COMPLIANT WITHOUT DIFFICULTY. CURRENTLY IN BED WITH EYES CLOSED. RESPIRATIONS EASY AND REGULAR, NO SIGNS OR SYMPTOMS OF DISTRESS NOTED.
--- NOTE | 2017-06-28 04:31 | NUR ---
24 HOUR CHART CHECK COMPLETED.
--- NOTE | 2017-06-28 06:09 | NUR ---
PATIENT OBSERVED ON Q 15 MIN CHECKS TO HAVE SLEPT THROUGHOUT THE NIGHT WITH NO AWAKENINGS OR SIGNS AND SYMPTOMS OF DISTRESS NOTED.
[2017-06-28 08:55] VITALS: BP 104/65
--- NOTE | 2017-06-28 11:33 | NUR ---
Patient participated during both recreation therapy groups this morning. Patient following along with exercise group and interactive during [employer] game. Patient appearing to be more talkative during this activity and pleased when others complimented him. Patient identifying daily goal to take medication and improve his moods.
--- NOTE | 2017-06-28 13:10 | NUR ---
updated clinical review given to [facility], this review is going to peer to peer review, genesis leiva will contact dr Betancourt for peer to peer
--- NOTE | 2017-06-28 16:11 | NUR ---
PT did attend RT group this afternoon. PT did participate but did not talk or socilaize with others. PT was quiet and withdrawn
--- NOTE | 2017-06-28 16:30 | NUR ---
PT IS ALERT TO SELF, INCONTROL, UNDERLYING IRRITABILITY, CONFUSED, UP AND STEADY AMBULATING, CONTITNENT, EATING AND DRINKING ADEQUATELY, NO EVIDENT HALLUCINATION OR DELUSIONS,
--- NOTE | 2017-06-28 18:59 | NUR ---
TREATMENT TEAM WAS HELD TO DISCUSS CARE WITH THE FOLLOWING: DR. BRIZUELA (PHONE), RNs, AT, SW AND MEDICAL STUDENT.
--- NOTE | 2017-06-28 19:06 | NUR ---
[facility] RECEIVED FROM [facility]. PT. STILL HAS [facility] AT [employer]. PT HAS NO IN-HOME SERVICES. JELLY RETURNED CALL AND LVM. JR RETURNED CALL TO JELLY. PT IS ATTENDING [employer] CLASSES AND CURENTLY WORKING ON 2 SUBJECTS. PT IS GETTING FRUSTRATED DUE TO NO UNDERSTANDING THE MATH. 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 JR FEELS THAT PT IS TRYING TO DO TOO MUCH AND IS BECOMING OVERWHELMED. PT WAS NOT SLEEPING WELL BEFORE HOSITALIZATION. JR WILL RESUME SERVICES WHEN PT IS DISCHARGED. JELLY WILL NOTIFY JR WHEN PT IS DISCHARGED.
[2017-06-28 20:14] VITALS: BP 116/66
--- NOTE | 2017-06-28 21:33 | NUR ---
24 HR chart check completed.
--- NOTE | 2017-06-29 06:22 | NUR ---
PT SLEPT THROUGHOUT THE NIGHT WITH OUT INTURRUPTION 8 HOURS. MED COMPLIANT WITH OUT DIFFICULTY. ISOLATIVE TO ROOM CONTINUE TO ENCOURAGE PARTICIPATION IN GROUP. DENIES SI AT THIS TIME. SEE FLOW SHEET FOR SPECIFIC MONITORING.
--- NOTE | 2017-06-29 06:23 | NUR ---
CALLED DR. BRIZUELA AT TO INFORM OF PT. CONSULT. STATED FOR ME TO CALL THE [facility] & INFORM THEM.
[2017-06-29 07:57] VITALS: BP 115/84
--- NOTE | 2017-06-29 11:33 | NUR ---
PT did attend RT group today and PT did participate. PT was quiet not really socializing with any of the PTs. But Pt did participate in activity which consisted of guessing what a PT was acting out.
--- NOTE | 2017-06-29 12:10 | NUR ---
PT IS ALERT AND ORIENTED TO PERSON, PLACE, TIME AND SITUATION. MEMORY APPEARS INTACT. RESPIRATIONS EASY ON ROOM AIR. MOOD REMAINS DEPRESSED WITH FLAT AFFECT. SPEECH IS WNL AND COHERENT. PT DENIES HALLUCINATIONS/DELUSIONS, NO RESPONSE TO INTERNAL STIMULI NOTED. PT DENIES SI/HI AT THIS TIME, PT STATES "LAST NIGHT, I HAD SOME SUICIDIAL THOUGHTS BUT JUST A LITTLE BIT. NOT LIKE IT WAS. I DON'T HAVE A PLAN THOUGH." PT DENIES CURRENT SUICIDAL THOUGHTS. PT ENCOURAGED TO COME TO NURSE IF SI THOUGHTS ARISE, PT VERBALIZED UNDERSTANDING, PT CONTRACTED FOR SAFETY. PT PARTICIPATED IN MORNING GROUP THIS AM. PT IS AMBULATORY, CONTINENT OF BOWEL AND BLADDER. MEDICATION COMPLIANT WITHOUT DIFFICULTY. DISPLAYS GOOD APPETITE WITH ADEQUATE FLUID INTAKE. PT OFFERS NO COMPLAINTS. NO DISTRESS NOTED. Q15 MIN SAFETY CHECKS MAINTAINED, REFER TO [facility] FLOWSHEET FOR SPECIFIC MONITORING.
--- NOTE | 2017-06-29 15:11 | NUR ---
case management received a message from Teetee at [facility], peer to peer was done and patient's stay is denied from 06/28/17 forward
--- NOTE | 2017-06-29 15:47 | NUR ---
PT did attend RT group this afternoon. PT also participated in group. PT was quiet and withdrawn but did answer some questions without prompting during trivia. PT did enjoy the painting portion of the group and did some socialization with other PTs
--- NOTE | 2017-06-29 15:54 | NUR ---
SHIFT CHART CHECK COMPLETED.
[2017-06-29 19:44] VITALS: BP 110/56
--- NOTE | 2017-06-29 21:18 | NUR ---
TREATMENT TEAM WAS HELD TO DISCUSS CARE. WITHBoom NAIDU: DR. BRIZUELA(PHONE), RNs, SW.
--- NOTE | 2017-06-29 22:57 | NUR ---
24 HR chart check completed.
--- NOTE | 2017-06-30 05:49 | NUR ---
PT HAS SLEPT QUIETLY THROUGHOUT THE SHIFT PAST 2044.
[2017-06-30 07:59] VITALS: BP 101/68
--- NOTE | 2017-06-30 11:00 | NUR ---
PT IS ALERT AND ORIENTED TO PERSON, PLACE, TIME AND SITUATION. MEMORY APPEARS INTACT. RESPIRATIONS EASY ON ROOM AIR. MOOD REMAINS DEPRESSED, AFFECT APPEARS BRIGHTER, SPEECH IS WNL AND COHERENT, ABLE TO MAKE NEEDS KNOWN. PT DENIES HALLUCINATIONS, NO RESPONSE TO INTERNAL STIMULI NOTED. NO DELUSIONS NOTED. PT DENIES SI/HI. VERBALIZED AGGREEMENT TO COME TO STAFF WITH SI/HI THOUGHTS ARISE. PT REPORTS POOR SLEEP LAST NIGHT, ENCOURAGED PT TO DISCUSS WITH DR. BRIZUELA DURING ROUNDS. PT VERBALIZED UNDERSTANDING. PT COMPLETED ATB COURSE FOR UTI, DENIES ANY URINARY SYMPTOMS. AMBULATORY ON UNIT WITH STEADY GAIT, INDEPENDENT WITH ADLS, CONTINENT OF BOWEL AND BLADDER, DISPLAYS GOOD APPETITE WITH ADEQUATE FLUID INTAKE. NO DISTRESS NOTED. Q15 MIN SAFETY CHECKS MAINTAINED, REFER TO [facility] FLOWSHEET FOR SPECIFIC MONITORING.
--- NOTE | 2017-06-30 11:13 | NUR ---
DR. GALICIA HERE TO SEE PT AT THIS TIME.
--- NOTE | 2017-06-30 11:22 | NUR ---
Patient participated during recreation therapy groups this morning. Patient sitting at another table away from others, but talkative with staff. Patient did not voice any negative/delusional thoughts during group interactions. Patient was able to stay focused and concentrating on craft activity. Patient was also oriented to time, place and situation during group along with peers. Patient future focused and identifying daily goal to stay consitent with medications.
--- NOTE | 2017-06-30 15:37 | NUR ---
Patient improving with participating during recreation therapy groups. Patient sitting with others more today and talking more as well. Patient displaying no hallucinations and voicing none as well. Patient enjoyed coloring activity and reminiscing/talking with peers and staff.
--- NOTE | 2017-06-30 18:16 | NUR ---
TREATMENT TEAM WAS HELD WITH THE FOLLOWIG TO DISCUSS CARE: DR. BRIZUELA (PHONE), RNs, AT, SW AND DIRECTOR. DISCHARGE SET FOR MondayJune. FEELS PT IS STILL HAVING HALLUCINATIONS
--- NOTE | 2017-06-30 18:22 | NUR ---
SW ASKED HOME PARAPROFESSIONAL TO FINISH SCHEDULING FOLLOWING UP APPOINTMENTS FOR PENINDING DISCHARGE ON MONDAY.
--- NOTE | 2017-06-30 18:27 | NUR ---
SHIFT CHART CHECK COMPLETED.
[2017-06-30 20:11] VITALS: BP 121/67
--- NOTE | 2017-07-01 04:04 | NUR ---
24HR CHART CHECK COMPLETE
--- NOTE | 2017-07-01 06:31 | NUR ---
PT SLEPT >10HRS WITH NO AWAKENINGS DURING THE NIGHT. PT REMAINED ISOLATIVE DURING SHIFT. DENIES SI/HI, HALLUCINATIONS, OR DELUSIONAL THOUGHT PROCESSES. REFER TO FLOWSHEET FOR ADDITIONAL INFO.
[2017-07-01 08:06] VITALS: BP 120/72
--- NOTE | 2017-07-01 11:10 | NUR ---
Patient goal oriented this morning during recreation therapy groups. Patient more involved with peers and staff this morning. Stating that he wants to focus on being consistent with medications. Patient involved in conversation about identifying leisure activities that he could do when he gets home to use his time better. Patient worked with peers to share his likes/interests during group.
--- NOTE | 2017-07-01 11:24 | NUR ---
DR. GALICIA, DR. DODSON AND DR. REED HERE TO SEE PT AT THIS TIME.
--- NOTE | 2017-07-01 15:04 | NUR ---
PT IS ALERT AND ORIENTED TO PERSON, PLACE, TIME AND SITUATION. MEMORY APPEARS INTACT. RESPIRATIONS EASY ON ROOM AIR. MOOD REMAINS DEPRESSED, AFFECT APPEARS BRIGHTER THAN PREVIOUS ASSESSMENTS. PT NOTED TO BE SMILING AND LAUGHING APPROPRIATELY WITH PEERS AT TIMES. SPEECH IS WNL AND COHERENT, ABLE TO MAKE NEEDS KNOWN. PT DENIES HALLUCINATIONS, NO RESPONSE TO INTERNAL STIMULI NOTED. PT DENIES SI/HI. PT ENCOURAGED TO COME TO STAFF WITH SI/HI THOUGHTS ARISE, PT VERBALIZED AGREEMENT. MEDICATION COMPLIANT WITHOUT DIFFICULTY. PT AMBULATORY ON THE UNIT WITH STEADY GAIT, INDEPENDENT WITH ADLS, CONTINENT OF BOWEL AND BLADDER, DISPLAYS GOOD APPETITE WITH ADEQUATE FLUID INTAKE. PT INTERACTIVE WITH STAFF AND PEERS, PARTICIPATING IN GROUPS AND ACTIVITIES. NO DISTRESS NOTED. Q15 MIN SAFETY CHECKS MAINTAINED, REFER TO [facility] FLOWSHEET FOR SPECIFIC MONITORING.
--- NOTE | 2017-07-01 15:27 | NUR ---
Patient participated during recreation therapy groups this afternoon. Patient sitting with this staff doing a stamp activity and talking about how creativity is an important personal trait to possess. Patient then playing bingo with peers and out in the hallway with male peer playing horseshoes. Patient oriented to date, place and time and voicing NO suicidal thoughts.
[2017-07-01 16:27] LABS: BILIRUBIN NEGATIVE (NEGATIVE); BLOOD TRACE-INTACT (NEGATIVE); CLARITY CLEAR (CLEAR); COLOR YELLOW (YELLOW); GLUCOSE NEGATIVE (NEGATIVE); KETONE NEGATIVE (NEGATIVE); LEUKO ESTERASE NEGATIVE (NEGATIVE); NITRITE NEGATIVE (NEGATIVE); SPECIFIC GRAVITY <= 1.005 (1.005-1.030); UROBILINOGEN 0.2 E.U./dl (0.2-1.0)
--- NOTE | 2017-07-01 17:07 | NUR ---
SHIFT CHART CHECK COMPLETED.
[2017-07-01 17:17] LABS: RBC 0-2 rbc/hpf (0-2)
[2017-07-01 19:56] VITALS: BP 109/60
--- NOTE | 2017-07-01 22:30 | NUR ---
PATIENT MEDICATION COMPLAINT. PATIENT RESTING IN BED AT THIS TIME. VOICES NO COMPLAINTS OF PAIN OR DISCOMFORT AT THIS TIME
--- NOTE | 2017-07-02 06:27 | NUR ---
24HR CHART CHECKS COMPLETE
--- NOTE | 2017-07-02 06:28 | NUR ---
PT SLEPT >10HRS WITH NO AWAKENINGS
[2017-07-02 07:58] VITALS: BP 120/69
--- NOTE | 2017-07-02 13:02 | NUR ---
PT attended RT group this afternoon as well as participated. PT very social and "jumping" in to give answers to trivia questions. PT also would give a little more infromation about question/answers during trivia. PT seemed to really enjoy this and was happy and pleasent.
--- NOTE | 2017-07-02 16:06 | NUR ---
PT did attend RT group this afternoon but wasnt real interested in the butterfly craft. This staff found a different craft he could do. PT seemed to enjoy that craft but soon bored of that craft too. PT talked and was friendy then choose to go shower
--- NOTE | 2017-07-02 18:43 | NUR ---
PT IS ALERT AND ORIENTED TO PERSON, PLACE, TIME AND SITUATION. MEMORY INTACT. RESPIRATIONS EASY ON ROOM AIR. MOOD IS STABLE, AFFECT BROAD RANGE. SPEECH IS WNL AND COHERENT. PT DENIES HALLUCINATIONS, NO RESPONSE TO INTERNAL STIMULI NOTED. PT DENIES SI/HI. NO DELUSIONS OR PARANOIA NOTED. MEDICATION COMPLIANT WITHOUT DIFFICULTY. AMBULATORY WITH STEADY GAIT, INDEPENDENT WITH ADLS, CONTINENT OF BOWEL AND BLADDER. DISPLAYS GOOD APPETITE WITH ADEQUATE FLUID INTAKE. NO DISTRESS NOTED. Q15 MIN SAFETY CHECKS MAINTAINED, REFER TO [facility] FLOWSHEET FOR SPECIFIC MONITORING.
--- NOTE | 2017-07-02 19:00 | NUR ---
SHIFT CHART CHECK COMPLETED.
[2017-07-02 19:55] VITALS: BP 116/78
--- NOTE | 2017-07-02 23:13 | NUR ---
PATIENT MEDICATION COMPLIANT. PATIENT RESTING IN BED AT THIS TIME. VOICES NO COMPLAINTS OF PAIN OR DISCOMFORT AT THIS TIME
--- NOTE | 2017-07-03 03:14 | NUR ---
24 HR chart check completed.
--- NOTE | 2017-07-03 06:37 | NUR ---
PATIENT RESTING IN BED. PATIENT SLEPT >8 HOURS. VOICES NO COMPLAINTS OF PAIN OR PAIN AT THIS TIME
[2017-07-03 08:04] VITALS: BP 110/69
[2017-07-03] MEDS ORDERED: BENZTROPINE ME0.5 MG PO (11:20)
[2017-07-03] MEDS ORDERED: RISPERIDONE2 M2 PO (11:20)
[2017-07-03] MEDS ORDERED: Vitamin D PO (11:20)
[2017-07-03] MEDS ORDERED: VENLAFAXINE HYD75 M3 PO (11:20)
[2017-07-03] MEDS ORDERED: LATANOPROST 2.2.5 ML OPH (12:03)
[2017-07-03] MEDS ORDERED: ZYPREXA7.5 M1 PO (12:14)
--- NOTE | 2017-07-03 13:27 | NUR ---
Patient participated during recreation therapy groups this morning. Patient goal oriented and positive about discharge. Patient calm/cooperative during group exercise and alert/oriented during trivia activity.
--- NOTE | 2017-07-03 13:51 | NUR ---
PT IS ALERT AND ORIENTED TO PERSON, PLACE, TIME AND SITUATION. MEMORY INTACT. RESPIRATIONS EASY ON ROOM AIR. MOOD IS STABLE WITH BROAD RANGE AFFECT. SPEECH IS WNL AND COHERENT. ABLE TO MAKE NEEDS KNOWN. PT DENIES HALLUCINATIONS, NO RESPONSE TO INTERNAL STIMULI NOTED. PT DENIES SI/HI. NO DELUSIONS OR PARANOIA NOTED. MEDICATION COMPLIANT WITHOUT DIFFICULTY. AMBULATORY ON THE UNIT WITH STEADY GAIT, INDEPENDENT WITH ADLS, CONTINENT OF BOWEL AND BLADDER, DISPLAYS GOOD APPETITE WITH ADEQUATE FLUID INTAKE. NO DISTRESS NOTED. Q15 MIN SAFETY CHECKS MAINTAINED, REFER TO [facility] FLOWSHEET FOR SPECIFIC MONITORING.
--- NOTE | 2017-07-03 14:30 | NUR ---
PT DISCHARGED TO HOME AT 1430 VIA TRANSMART TRANSPORTATION SERVICES SET UP BY [facility]. ALL DISCHARGE INTRUCTIONS AND MEDICATION LISTS WERE REVIEWED WITH THE PT PRIOR TO DISCHARGE WITH PT'S STATED UNDERSTANDING. ALL PERSONAL BELONGINGS WERE SENT WITH THE PT. PT LEFT THE UNIT IN STABLE CONDITION.
--- NOTE | 2017-07-03 15:19 | NUR ---
Personal Care Aid Note: Scheduled transportation [facility]: they gave an estimate of pick-up time for Noon-3pm. today.
--- NOTE | 2017-07-03 15:49 | NUR ---
Mobile Qa Tester Note: [facility] [place] [facility] to [facility] [place] for the patient's follow-up appointments.
--- NOTE | 2017-07-03 19:54 | NUR ---
TREATMETN TEAM WAS HELD TO DISCUSS DISCHARGE TODAY WITH THE FOLLOWING: DR. VILLASENOR, RNs, SW AND DIRECTOR.
--- NOTE | 2017-07-03 19:55 | NUR ---
JELLY NOTIFIED [facility] THAT PT WAS BEING DISCARGED IN NEXT 3 HOURS BY [facility]SP[facility].
--- NOTE | 2017-07-03 19:55 | NUR ---
[facility] DISCHARGE PAPERS SIGNED BY PT. COPIES GIVEN TO PT AT DISCHARGE. PT BACK TO APARTMENT IN [facility] WITH MENTAL HEALTH CM TO ASSIST PT.
== END 2017-07-03 14:30 | disposition home or self-care (01) | DRG 885 ==
LOC: 3N 15:24
PROVIDERS: Registered Nurse; ADMIT Psychiatry & Neurology Psychiatry
DX: F25.1 Schizoaffective disorder, depressive type (principal); E87.1 Hypo-osmolality and hyponatremia; R00.1 Bradycardia, unspecified; Z91.14 Patient's other noncompliance with medication regimen; F41.9 Anxiety disorder, unspecified; R03.0 Elevated blood-pressure reading, without diagnosis of hypertension; Z82.49 Family history of ischemic heart disease and other diseases of the circulatory system; Z88.8 Allergy status to other drugs, medicaments and biological substances; Z56.0 Unemployment, unspecified; Z79.899 Other long term (current) drug therapy; Z72.0 Tobacco use

== ENCOUNTER 2017-12-21 16:04 | Inpatient (IN) | payer OTHER ==
[~2017-12-21] VITALS: Ht 172.7 cm; Wt 81.6 kg
--- NOTE | ~2017-12-21 | PR ---
[place], [place] PROGRESS NOTE NAME: TIMOTHY WHITLEY UNIT #: [id number] ROOM: 314 DOCTOR: ANDREZ VILLASENOR MD BIRTHDATE: [birth year] DOS: 12/25/2017 CHIEF COMPLAINT: "I am feeling better doctor, thank you so much." SUMMARY OF THE VISIT: The patient was interviewed in the dining area where he had just completed his breakfast. He engaged readily in conversation. He reports that he is feeling 100% better, stating that he is sleeping better, eating better, and that the voices have dissipated. He convincingly denies medication side effects and looks bright and very attentive. He reports that he is feeling closer and closer to being ready for discharge. MENTAL STATUS EXAMINATION: He is alert and oriented to person, place and time. Mood does seem to be strongly trending towards euthymia. Affect is more appropriate. There are no symptoms of diana or hypomania. He convincingly denies auditory or visual hallucinations. Memory for the most part is intact. PLAN: His vitamin D level was low at 26, so I will start vitamin D 50,000 International Units q. Monday. I will order his secondary loading dose of Invega Sustenna of 156 mg IM on 12/29/2017. We will discharge then when psychiatrically stable. ANDREZ VILLASENOR MD CM:PNTRANS [id number] ANDREZ VILLASENOR MD 12/25/17 1336 interface
--- NOTE | ~2017-12-21 | DS ---
[place], [place] DISCHARGE SUMMARY NAME: TIMOTHY WHITLEY UNIT #: [id number] ROOM: 314 DOCTOR: ANDREZ VILLASENOR MD BIRTHDATE: [birth year] DOS: 12/27/2017 CHIEF COMPLAINT: "My medicines quit working, although I stopped them and that made things worse." HISTORY OF PRESENT ILLNESS: This is a 57-year-old white male well known to us due to multiple admissions here to the [facility]. The patient did show up at [facility] in [place] on 12/20/2017 and stated that he has been off his medicines and needed to be admitted there because his current home at [facility] was infested by demons. The patient then was sent by [facility] to [facility] to be further evaluated. The patient was found to be grossly psychotic, was very paranoid and agitated. He feels that people are plotting against him and are out to poison him. When he had presented initially to [facility], he was very unkempt and dirty. His clothes were filthy and he had not attended to his ADLs for some time. When EMS did intervene, he was irritable and verbally and physically aggressive towards them and initially upon admission to the [facility], he was resistive to all aspects of care. He was admitted ultimately to rule out organic factors, to stabilize on medication with the plan then to return to the least restrictive environment when psychiatrically stable. PAST MEDICAL HISTORY: Remarkable for allergies to HALDOL and RISPERDAL. He also has a lengthy history of schizoaffective disorder. SUMMARY OF HOSPITAL COURSE: The patient was admitted to the unit where he was started on Invega 6 mg daily. Despite the reported allergy to RISPERIDONE, he did tolerate the Invega well. He did not show any sedation, somnolence, extrapyramidal symptoms or tardive dyskinesia. After tolerating multiple doses of the oral Invega well, he was loaded with Invega Sustenna 234 mg IM. Several days later, he did receive a secondary loading dose of 156 mg. Within a matter of days of receiving the Invega Sustenna his psychosis broke. He was much more compliant and pleasant. He reported good sleep and appetite. He was able to attend to groups well. He attended to his own ADLs well. There were no incidents of any type of agitation, whether it be verbal or physical. He voiced positive plans for the future and voiced that he felt that the current medication was working much better than his previous Aristada injection. The patient did voice positive plans for the future and felt that he was ready to return home by December 27. He will have outpatient followup with his provider. MENTAL STATUS AT DISCHARGE: The patient was alert and oriented to person, place and time. Mood was euthymic. Affect appropriate. There was no symptom suggestive of diana or hypomania. There were no overt auditory or visual hallucinations noted. Short, intermediate and long-term memories were fully intact. FINAL DIAGNOSES UPON DISCHARGE: Schizoaffective disorder. PLAN: All of his prescriptions except for the vitamin D have been e scribed the [facility]. Vitamin D was printed and will be sent with him. He will [place], [place] DISCHARGE SUMMARY NAME: TIMOTHY WHITLEY UNIT #: [id number] ROOM: 314 DOCTOR: ANDREZ VILLASENOR MD BIRTHDATE: [birth year] have followup with his outpatient provider. ANDREZ VILLASENOR MD CM:SOHAM 7 ANDREZ VILLASENOR MD 12/27/1757 interface
--- NOTE | ~2017-12-21 | PR ---
[place], [place] PROGRESS NOTE NAME: TIMOTHY WHITLEY UNIT #: [id number] ROOM: 314 DOCTOR: ANDREZ VILLASENOR MD BIRTHDATE: [birth year] DOS: 12/26/2017 CHIEF COMPLAINT: "Good morning doctor, thank you so much." SUMMARY OF THE VISIT: The patient was interviewed in the dining area where he was sitting eating breakfast. As I approached him, he engaged readily in conversation. He was bright and pleasant upon approach and offered no complaints, stating that he is feeling much better. He reports that he is sleeping well, eating well and that the voices have diminished almost completely. He reports no side effects from the medications themselves. MENTAL STATUS: He is alert and oriented. Mood does seem to be more euthymic. Affect more appropriate. He was bright and pleasant upon approach, easily engaging. There were no overt signs of hypomania or diana. There were no overt auditory or visual hallucinations. No delusions, no paranoia. Short, intermediate and long-term memories were intact. PLAN: We will attempt to start Invega Sustenna. I did discuss with him the pros and cons of receiving the Sustenna and he nodded in approval. My sense would be that this should help improve outpatient compliance and then his outpatient provider can decide to discontinue the oral Invega at their choice. We will engage in individual and stern milieu activity, returning then to the community when stable. ANDREZ VILLASENOR MD CM:PNTRANS [id number] ANDREZ VILLASENOR MD 12/26/17 0934 interface
--- NOTE | ~2017-12-21 | PR ---
[place], [place] PROGRESS NOTE NAME: TIMOTHY WHITLEY UNIT #: [id number] ROOM: 314 DOCTOR: ROSEANNA BRIZUELA MD BIRTHDATE: [birth year] DOS: 12/24/2017 SUBJECTIVE: The patient seen and I spoke with the staff. Per staff, the patient stays isolated, medication compliant. No behavioral problems or issues. The patient was pleasant and cooperative. He was in his bed. He reports doing well. He is taking his medication regularly and did not have any side effect. He reports good sleep and appetite. When I asked him that why he stays in his room all the time, he did not answer, but mentioned that he will try to stay in the day area more. MENTAL STATUS EXAMINATION: Pleasant, cooperative. Described his mood as "good." Affect, mood congruent. Thought process goal directed. No flight of ideas, loosening of association. He denied auditory or visual hallucination. No delusion or paranoia noted. He denies suicidal ideation, intent or plan. He also denied any homicidal ideation, intent or plan. ASSESSMENT: Schizoaffective disorder. PLAN: 1. Continue current medication and care. 2. Continue redirection. 3. Final medication management and discharge planning by the regular team. ROSEANNA BRIZUELA MD CM:PNTRANS [id number] [phone] ROSEANNA BRIZUELA MD 12/24/[id number] interface
--- NOTE | ~2017-12-21 | WRIGHTHP ---
[place], [place] PATIENT HISTORY AND PHYSICAL EXAM NAME: TIMOTHY WHITLEY UNIT #: [id number] ROOM: 314 DOCTOR: ANDREZ VILLASENOR MD BIRTHDATE: [birth year] DOS: 12/21/2017 CHIEF COMPLAINT: "My medicines quit working, although I stopped them." HISTORY OF PRESENT ILLNESS: This is a 57-year-old white male well known to us because of multiple admissions to the [facility]. The patient had shown up at [facility] in [facility] on 12/20/2017 and stated there that he was off of his medications and he needed to be admitted there because his current home at [facility] was infested by demons. The patient reported that he had not been taking his medicines for sometime and was feeling very paranoid and felt that things were being plotted against him. The patient had presented to [facility] very unkempt and dirty. His clothes were filthy. He had not been attending to his ADLs. [facility] did call EMS who took the patient to [facility] where he was medically cleared and sent to [facility] for further stabilization. PAST MEDICAL HISTORY: Remarkable for schizoaffective disorder as well as a history of allergies to HALDOL and RISPERDAL. MENTAL STATUS: The patient is alert and oriented. Mood does seem to be rather depressed. He is rather preoccupied and openly admits to auditory hallucinations. There is a great deal of paranoia present. He feels that in the past at home people were out to get him. He does report feeling safe here, however. Initially, he was noncompliant with medicines, but he does seem to have changed his stance and he is much more amicable and much more pleasant and cooperative. For the most part, his memory is fully intact. DIAGNOSIS: Schizoaffective disorder. PLAN: The patient did already receive 6 mg of Invega last night. I will order Invega 6 mg in the morning and plan to load him with Invega Sustenna 234 mg IM on 12/24/2017. Given the fact that he has a history of medication noncompliance with significant risk of relapse, I feel that the long-acting decanoate prep would be a good option for him. We will monitor and support, engage in individual and stern milieu activity, returning to [facility] or to an alternative placement when psychiatrically stable. [place], [place] PATIENT HISTORY AND PHYSICAL EXAM NAME: TIMOTHY WHITLEY UNIT #: [id number] ROOM: [facility] DOCTOR: ANDREZ VILLASENOR MD BIRTHDATE: [birth year] ANDREZ VILLASENOR MD CM:HISPHYS:PATIENT HISTORY AND PHYSICAL EXAMINATION 2 1 ANDREZ VILLASENOR MD 12/22/17920 interface
--- NOTE | ~2017-12-21 | PR ---
[place], [place] PROGRESS NOTE NAME: TIMOTHY WHITLEY UNIT #: [id number] ROOM: 314 DOCTOR: ROSEANNA BRIZUELA MD BIRTHDATE: [birth year] DOS: 12/23/2017 SUBJECTIVE: The patient seen and spoke with the staff. Per staff, the patient is doing well. No behavior problems or issues. Medication compliant. The patient was on his bed. He said that he is doing well and feeling better. He denied any auditory or visual hallucination. He denied any side effects from the medication. He said that he feels tired during the daytime, but he will try to push himself up and then go to the day area. MENTAL STATUS EXAMINATION: The patient was pleasant, cooperative. Described his mood as "good." Affect constricted. Thought process goal directed. No flight of ideas or loosening of association. He denied auditory or visual hallucination. No delusion or paranoia noted. He denied suicidal ideation, intent or plan. He also denied homicidal ideation, intent or plan. ASSESSMENT: Schizoaffective disorder. PLAN: 1. Continue current medication and care. 2. Encourage activities and groups. 3. Supportive care. ROSEANNA BRIZUELA MD CM:PNTRANS [id number] ROSEANNA BRIZUELA MD 12/24/17 0039 interface
[~2017-12-21 16:04] MED LIST changes: +BENZTROPINE ME0.5 MG PO; +LATANOPROST 2.2.5 ML OPH; +RISPERIDONE2 M2 PO; +VENLAFAXINE HYD75 M3 PO; +Vitamin D PO; +ZYPREXA7.5 M1 PO
[2017-12-21 20:30] VITALS: BP 125/66
[2017-12-22 07:06] LABS: BASO # 0.1 10*3/uL (0.0-0.1); BASO % 0.9 % (0.0-1.0); EOS # 0.2 10*3/uL (0.0-0.4); EOS % 2.5 % (1.0-4.0); HEMATOCRIT 48.9 % (42.0-52.0); HEMOGLOBIN 16.4 g/dl (14.0-18.0); LYMPH # 3.3 10*3/uL (1.3-4.4); LYMPH % 40.5 % (27.0-41.0); MEAN CORPUSCULAR HGB 31.2 pg (27.0-31.0); MEAN CORPUSCULAR HGB CONC 33.5 g/dl (33.0-37.0); MEAN PLATELET VOLUME 9.9 fl (9.6-12.3); MONO # 0.7 10*3/uL (0.1-1.0); MONO % 8.8 % (3.0-9.0); NEUT # 3.8 10*3/uL (2.3-7.9); NEUT % 46.6 % (47.0-73.0); PLATELET COUNT AUTOMATED 209 10*3/uL (130-400); RED BLOOD COUNT 5.26 10*6/uL (4.50-5.90); WHITE BLOOD COUNT 8.1 10*3/uL (4.8-10.8)
[2017-12-22 07:37] LABS: ALBUMIN 3.6 gm/dl (3.1-4.5); BUN 8 mg/dl (7-24); CHLORIDE 97 mmol/L (98-107); CREATININE 0.92 mg/dL (0.70-1.30); HDL CHOLESTEROL 47 mg/dl (40-60); SGOT/AST 28 IU/L (3-35); SGPT/ALT 42 U/L (12-78); SODIUM 134 mmol/L (136-145); TOTAL PROTEIN 7.5 gm/dL (6.4-8.2); TRIGLYCERIDES 124 mg/dl (<150); VLDL CHOLESTEROL 25 mg/dL (6-40)
[2017-12-22 07:47] LABS: ALKALINE PHOSPHATASE 72 U/L (45-117); CHOLESTEROL 145 mg/dL (<200); LDL CHOLESTEROL 73 mg/dL (9-159)
[2017-12-22 08:03] VITALS: BP 130/68
[2017-12-22 20:00] VITALS: BP 112/60
[2017-12-23 07:39] VITALS: BP 139/75
[2017-12-23 20:00] VITALS: BP 120/72
[2017-12-24 07:51] VITALS: BP 118/74
[2017-12-24 20:00] VITALS: BP 125/68
[2017-12-25 07:46] VITALS: BP 139/79
[2017-12-25 20:00] VITALS: BP 133/60
[2017-12-26 07:53] VITALS: BP 123/68
[2017-12-26 20:00] VITALS: BP 134/78
[2017-12-27 07:34] VITALS: BP 115/79
[2017-12-27] MEDS ORDERED: INVEGA SUSTENN156 MG IM (09:30)
[2017-12-27] MEDS ORDERED: PALIPERIDONE ER6 MG PO (09:30)
[2017-12-27] MEDS ORDERED: MIRTAZAPINE15 M2 PO (09:30)
[2017-12-27] MEDS ORDERED: Vitamin D PO (09:30)
== END 2017-12-27 16:00 | disposition home or self-care (01) | DRG 885 ==
LOC: 3N 16:04
PROVIDERS: Psychiatry & Neurology Psychiatry
DX: F25.1 Schizoaffective disorder, depressive type (principal); E87.1 Hypo-osmolality and hyponatremia; F41.9 Anxiety disorder, unspecified; F22 Delusional disorders; R03.0 Elevated blood-pressure reading, without diagnosis of hypertension; Z88.8 Allergy status to other drugs, medicaments and biological substances; Z90.49 Acquired absence of other specified parts of digestive tract; Z82.3 Family history of stroke; Z72.0 Tobacco use; Z82.49 Family history of ischemic heart disease and other diseases of the circulatory system; Z84.89 Family history of other specified conditions; Z79.899 Other long term (current) drug therapy